=== PATIENT | male | born 1990 ===

== ENCOUNTER 2017-12-18 12:55 | Emergency (ER) | payer SELFPAY ==
[2017-12-18 13:10] VITALS: O2SAT 100
[2017-12-18] MEDS ORDERED: Sodium Chloride 0.9% 1,000 ML IV STA ×2 (13:27→14:32)
[2017-12-18] MEDS ORDERED: TDAP Vaccine 0.5 mL Syr IM ONE (13:27)
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
[2017-12-18] MEDS ORDERED: Iohexol 350 MG/100 ML VIAL ONE (14:49)
[2017-12-18 14:54] LABS: BASO # 0.04 K/mm3 (0.0-2.0); BASO % 0.4 % (0.0-3.0); EOS # 0.1 (0.0-0.7); EOS % 0.9 % (1.5-5.0); GRAN # 7.88 (1.4-6.5); GRAN % 71.8 % (50.0-68.0); LYMPH # 2.2 (1.2-3.4); LYMPH % 20.1 % (22.0-35.0); MEAN CELL VOLUME 92.4 fl (80.0-105.0); MEAN CORPUSCULAR HEMOGLOBIN 32.8 pg (25.0-35.0); MEAN CORPUSCULAR HGB CONC 35.5 g/dl (31.0-37.0); MEAN PLATELET VOLUME 9.2 fl (7.0-11.0); MONO # 0.8 (0.1-0.6); MONO % 6.8 % (1.0-6.0); RBC 4.88 10^6/uL (3.5-6.1); RED CELL DISTRIBUTION WIDTH 12.7 % (11.5-14.5)
[2017-12-18 15:04] LABS: ALB/GLOB RATIO 1.5 (1.1-1.8); ALBUMIN 4.3 g/dL (3.0-4.8); ALT/SGPT 40 U/L (7-56); AST/SGOT 42 U/L (17-59); BLOOD UREA NITROGEN 22 mg/dL (7-21); GFR AFRICAN-AMERICAN > 60; GFR NON-AFRICAN AMERICAN > 60; LIPASE 145 U/L (23-300)
[2017-12-18 15:15] LABS: TROPONIN I < 0.01 ng/mL
[2017-12-18 15:21] LABS: CK-MB 2.1 ng/mL (0.0-3.6)
[2017-12-18 17:47] VITALS: BP 118/64; PULSE 81
--- NOTE | 2017-12-18 17:54 | CARD ---
APPROVED REPORT EKG Measurement Heart [id number] <Conclusion> Normal sinus rhythm Normal ECG
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
[2017-12-18 20:32] VITALS: RESP 16; TEMP 98.4
== END 2017-12-18 20:31 | disposition home or self-care (01) ==
LOC: ED 12:55
DX: S20.219A Contusion of unspecified front wall of thorax, initial encounter (principal); S16.1XXA Strain of muscle, fascia and tendon at neck level, initial encounter; S46.912A Strain of unspecified muscle, fascia and tendon at shoulder and upper arm level, left arm, initial encounter; V49.49XA Driver injured in collision with other motor vehicles in traffic accident, initial encounter; Y92.410 Unspecified street and highway as the place of occurrence of the external cause; Z23 Encounter for immunization
CPT/HCPCS: 70450; 71260; 72125; 73130; 74177; 80053; 82550; 82553; 83615; 83690; 84484; 85025; 86850; 86900; 90471; 90715; 93005; 96360; 96361; 99285; J7030; Q9967

== ENCOUNTER 2018-02-10 16:57 | Emergency (ER) | payer SELFPAY ==
[2018-02-10 17:52] VITALS: RESP 18; TEMP 98.5; O2SAT 100; BMI 22.2
[2018-02-10] MEDS ORDERED: Sodium Chloride 0.9% 1,000 ML IV STA (18:19)
[2018-02-10 19:19] LABS: ALB/GLOB RATIO 1.3 (1.1-1.8); ALBUMIN 4.3 g/dL (3.0-4.8); ALT/SGPT 29 U/L (7-56); AST/SGOT 23 U/L (17-59); BLOOD UREA NITROGEN 16 mg/dL (7-21); CALCIUM 9.3 mg/dL (8.4-10.5); GFR AFRICAN-AMERICAN > 60; GFR NON-AFRICAN AMERICAN > 60
[2018-02-10 19:33] LABS: BASO # 0.02 K/mm3 (0.0-2.0); BASO % 0.3 % (0.0-3.0); EOS # 0.1 (0.0-0.7); EOS % 1.1 % (1.5-5.0); GRAN # 4.95 (1.4-6.5); GRAN % 67.2 % (50.0-68.0); HEMOGLOBIN 16.4 g/dL (14.0-18.0); LYMPH # 1.7 (1.2-3.4); LYMPH % 23.4 % (22.0-35.0); MEAN CELL VOLUME 91.8 fl (80.0-105.0); MEAN CORPUSCULAR HEMOGLOBIN 32.9 pg (25.0-35.0); MEAN CORPUSCULAR HGB CONC 35.8 g/dl (31.0-37.0); MEAN PLATELET VOLUME 9.2 fl (7.0-11.0); MONO # 0.6 (0.1-0.6); RBC 4.99 10^6/uL (3.5-6.1); RED CELL DISTRIBUTION WIDTH 12.1 % (11.5-14.5); WHITE BLOOD COUNT 7.4 10^3/ul (4.5-11.0)
[2018-02-10 19:35] LABS: INR 0.96; PARTIAL THROMBOPLASTIN TIME 29.2 Seconds (25.1-36.5); PROTHROMBIN TIME 10.9 SECONDS (9.4-12.5)
[2018-02-10] MEDS ORDERED: Iohexol 350 MG/100 ML VIAL ONE (19:41)
[2018-02-10] MEDS ORDERED: Lidocaine 2% Inj (20ml) IJ STA (20:39)
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
[2018-02-10] MEDS ORDERED: Lidocaine PF 2% (5 ml) Inj (For Cardiac Arrhy) ONE (20:56)
[2018-02-10 23:12] VITALS: BP 121/79; PULSE 60
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
--- NOTE | 2018-02-11 09:27 | RAD ---
Date of service: 02/10/2018 PROCEDURE: Right ring finger radiographs. HISTORY: s/p reduction COMPARISON: None. TECHNIQUE: AP radiograph of the right hand, as well as spot oblique and lateral images of ring finger were obtained. FINDINGS: RIGHT RING FINGER: Tiny displaced osseous fragment seen along the palmar aspect of the base of the 4th distal phalanx. Remainder of the right hand (as seen on the AP view) grossly unremarkable. JOINTS: Three films are submitted described as postreduction 1. , post reduction and 2nd reduction. All 3 of these films demonstrate persistent posterior dislocation at the 4th distal interphalangeal joint. SOFT TISSUES: Normal. OTHER FINDINGS: None. IMPRESSION: Posterior dislocation DIP for. Tiny displaced fracture at the base of the distal phalanx.
--- NOTE | 2018-02-11 09:35 | RAD ---
Date of service: 02/10/2018 PROCEDURE: Right ring finger radiographs. HISTORY: 4th finger injury COMPARISON: None. TECHNIQUE: AP radiograph of the right hand, as well as spot oblique and lateral images of ring finger were obtained. FINDINGS: RIGHT RING FINGER: Tiny displaced fracture at the palmar aspect of the base of the 4th distal phalanx. Remainder of the right hand (as seen on the AP view) grossly unremarkable. JOINTS: Posterior dislocation at 4th DIP. SOFT TISSUES: Normal. OTHER FINDINGS: None. IMPRESSION: Posterior dislocation 4th DIP with small displaced fracture fragment at the palmar aspect of the base of the distal phalanx.
== END 2018-02-10 23:13 | disposition home or self-care (01) ==
LOC: ED 16:57
DX: S62.634A Displaced fracture of distal phalanx of right ring finger, initial encounter for closed fracture (principal); S32.038A Other fracture of third lumbar vertebra, initial encounter for closed fracture; S20.212A Contusion of left front wall of thorax, initial encounter; Y04.0XXA Assault by unarmed brawl or fight, initial encounter; Y92.9 Unspecified place or not applicable
CPT/HCPCS: 26755; 71260; 73140; 74177; 80053; 85025; 85610; 85730; 99285; J7030; Q9967